=== PATIENT | female | born 1940 | race Caucasian/White ===

== ENCOUNTER 2017-06-15 10:16 | Emergency (ER) | payer MEDICARE ==
[~2017-06-15] VITALS: Ht 162.6 cm; Wt 61.0 kg
[~2017-06-15 10:16] MED LIST: AMBIEN5 MG PO; ASPIRIN LOW DOS81 M1 PO; B12-ACTIVE1 MG PO; BACTRIM DS1 TAB PO; BENTYL10 MG PO; FISH OIL1200 M1 PO; LEVOTHYROXIN125 MC1 PO; LIPITOR20 M1 PO; MULTI FOR HER PO; NEXIUM40 MG PO; PRILOSEC40 MG PO; SIMETHICONE80 M2 PO; VITAMIN D-32000 UNI1 PO
[2017-06-15] MEDS ORDERED: SYNTHROID112 MCG PO (10:33)
[2017-06-15] MEDS ORDERED: MOTRIN400 MG PO (12:15)
[2017-06-15 12:25] VITALS: BP 128/70
[2017-06-15] MEDS ORDERED: LIPITOR20 MG PO (12:26)
[2017-06-15] MEDS ORDERED: ADLT ASA LOW81 MG PO (12:28)
== END 2017-06-15 12:25 | disposition home or self-care (01) ==
LOC: ED 10:16
DX: M25.522 Pain in left elbow (principal); E03.9 Hypothyroidism, unspecified; F32.9 Major depressive disorder, single episode, unspecified

== ENCOUNTER 2018-06-12 11:08 | Emergency (ER) | payer MEDICARE ==
[~2018-06-12] VITALS: Ht 162.6 cm; Wt 60.0 kg
[~2018-06-12 11:08] MED LIST changes: +ADLT ASA LOW81 MG PO; +LIPITOR20 MG PO; +MOTRIN400 MG PO; +SYNTHROID112 MCG PO
[2018-06-12] MEDS ORDERED: ATORVASTATIN CA40 MG PO (11:54)
[2018-06-12] MEDS ORDERED: OMEPRAZOLE20 M2 PO (11:55)
[2018-06-12] MEDS ORDERED: ESCITALOPRAM OX10 MG PO (11:55)
[2018-06-12] MEDS ORDERED: TORADOL PO (12:45)
[2018-06-12 12:50] VITALS: BP 148/81
== END 2018-06-12 12:56 | disposition home or self-care (01) ==
LOC: ED 11:08
DX: R51 Headache (principal); E03.9 Hypothyroidism, unspecified